=== PATIENT | male | born 1995 | race Caucasian/White ===

== ENCOUNTER 2017-06-30 16:26 | Emergency (ER) | payer OTHER ==
--- NOTE | 2017-06-30 17:12 | EDM.PDOC ---
ED HPI GENERAL MEDICAL PROBLEM - General Chief Complaint: Lower Extremity Injury/Pain Stated Complaint: PT HURT LT LEG Time Seen by Provider: 06/30/17 16:56 - History of Present Illness INITIAL COMMENTS - FREE TEXT/NARRATIVE: HISTORY AND PHYSICAL: History of present illness: Patient is 22-year-old male presents with concern of acute left lower extremity injury in which he fell and struck his extremity on a rock sustained a abrasion contusion with laceration he denies other trauma or concern he states he is up- to-date on his tetanus patient is refusing any suturing he does agree to irrigation and occlusive dressing as well as requesting x-ray Review of systems: As per history of present illness and below otherwise all systems reviewed and negative. Past medical history: As per history of present illness and as reviewed below otherwise noncontributory. Surgical history: As per history of present illness and as reviewed below otherwise noncontributory. Social history: No reported history of drug or alcohol abuse. Family history: As per history of present illness and as reviewed below otherwise noncontributory. Physical exam: HEENT: Atraumatic, normocephalic, pupils reactive, negative for conjunctival pallor or scleral icterus, mucous membranes moist, throat clear, neck supple, nontender, trachea midline. Lungs: Clear to auscultation, breath sounds equal bilaterally, chest nontender. Heart: S1S2, regular, negative for clicks, rubs, or JVD. Abdomen: Soft, nondistended, nontender. Negative for masses or hepatosplenomegaly. Negative for costovertebral tenderness. Pelvis: Stable nontender. Genitourinary: Deferred. Rectal: Deferred. Extremities: Patient has a contusion with abrasion and superficial laceration at approximately 2.5 cm. Neuro: Awake, alert, oriented. Cranial nerves II through XII unremarkable. Cerebellum unremarkable. Motor and sensory unremarkable throughout. Exam nonfocal. Diagnostics: X-ray tib-fib Therapeutics: was cleansed irrigated and dressed with bacitracin Impression: #1 acute injury left lower extremity Definitive disposition and diagnosis as appropriate pending reevaluation and review of above. Left Leg Pain Score (Numeric/FACES): 7 - Related Data Allergies Allergy/AdvReac Type Severity Reaction Status Date / Time No Known Allergies Allergy Verified 06/30/17 16:43 Home Meds: Home Meds . [No Known Home Meds] 06/30/17 [History] Past Medical History - Past Health History Medical/Surgical History: Denies Medical/Surgical History Musculoskeletal History: Reports: Other (See Below) Other Musculoskeletal History: broken wrist and thumb Social & Family History - Family History Family Medical History: Noncontributory - Tobacco Use Smoking Status *Q: Never Smoker Second Hand Smoke Exposure: No - Caffeine Use Caffeine Use: Reports: Coffee, Energy Drinks, Soda - Recreational Drug Use Recreational Drug Use: No Review of Systems - Review of Systems Review Of Systems: ROS reveals no pertinent complaints other than HPI. ED EXAM, GENERAL - Physical Exam Exam: See Below (See dictation) Course - Vital Signs Last Recorded V/S: Last Vital Signs Temp 36.5 C 06/30/17 16:41 Pulse 96 06/30/17 16:41 Resp 18 06/30/17 16:41 BP 126/89 06/30/17 16:41 Pulse Ox 95 06/30/17 16:41 - Orders/Labs/Meds Orders: Active Orders 24 hr Category Date Time Status Tibia Fibula Lt [CR] Stat Exams 06/30/17 17:03 Taken Meds: Medications Discontinued Medications Generic Name Dose Route Start Last Admin Trade Name Freq PRN Reason Stop Dose Admin Bacitracin 1 dose 06/30/17 17:43 06/30/17 17:46 Bacitracin Oint 1 Gm TOP 06/30/17 17:44 1 dose ONETIME ONE Administration Departure - Departure Time of Disposition: 17:11 Disposition: Home, Self-Care 01 Condition: Good Clinical Impression: Leg injury - Discharge Information Referrals: PCP,None [Primary Care Provider] - Forms: ED Department Discharge Additional Instructions: The following information is given to patients seen in the emergency department who are being discharged to home. This information is to outline your options for follow-up care. We provide all patients seen in our emergency department with a follow-up referral. The need for follow-up, as well as the timing and circumstances, are variable depending upon the specifics of your emergency department visit. If you don't have a primary care physician on staff, we will provide you with a referral. We always advise you to contact your personal physician following an emergency department visit to inform them of the circumstance of the visit and for follow-up with them and/or the need for any referrals to a consulting specialist. The emergency department will also refer you to a specialist when appropriate. This referral assures that you have the opportunity for followup care with a specialist. All of these measure are taken in an effort to provide you with optimal care, which includes your followup. Under all circumstances we always encourage you to contact your private physician who remains a resource for coordinating your care. When calling for followup care, please make the office aware that this follow-up is from your recent emergency room visit. If for any reason you are refused follow-up, please contact the [facility] emergency department at and asked to speak to the emergency department charge nurse. Wound care as directed dressing changes twice a day follow-up primary medical doctor 1-2 days return as needed as discussed - My Orders Last 24 Hours: My Active Orders 06/30/17 17:03 Tibia Fibula Lt [CR] Stat - Assessment/Plan Last 24 Hours: My Active Orders 06/30/17 17:03 Tibia Fibula Lt [CR] Stat
[2017-06-30] MEDS ORDERED: Bacitracin Oint 1 GM U/D Packet TOP ONE (17:43)
--- NOTE | 2017-07-02 14:53 | CR ---
EXAM DATE: 06/30/17 PATIENT'S AGE: 22 Patient: RAFITA CAMARGO Facility: [place], [place] Site . Site : 1997 Study: XRay Extremity Left tib/fib [id number] 5:20:13 PM Ordering Physician: Cassandra Wheeler Final Report: Left tibia fibula. 2 VIEWS INDICATION: Pain. IMPRESSION: No visualized fracture. Alignments anatomic. No additional osseous lesion. Dictated by Gopal Burns MD @ Jun 30 2017 5:23PM (Electronic Signature) Report Signed by Proxy. LISA
== END 2017-06-30 18:00 | disposition home or self-care (01) ==
LOC: MW.ED 16:26
DX: S81.812A Laceration without foreign body, left lower leg, initial encounter (principal); S80.12XA Contusion of left lower leg, initial encounter; W01.118A Fall on same level from slipping, tripping and stumbling with subsequent striking against other sharp object, initial encounter
CPT/HCPCS: 73590-26-LT; 73590-LT; 99283